=== PATIENT | female | born 1945 | race Caucasian/White ===

== ENCOUNTER 2019-11-06 05:45 | Inpatient (IN) | payer OTHER, BC ==
[2019-10-30 15:00] VITALS: BMI 19.3
[2019-11-06] MEDS ORDERED: TRANEXAMIC ACID 1000 MG/10 ML VIAL IVPUSH ONE (06:29)
[2019-11-06] MEDS ORDERED: CELECOXIB 200 MG CAPSULE PO ONE (06:29)
[2019-11-06] MEDS ORDERED: CEFAZOLIN 2 GM in DEXTROSE 5%-WATER - 50 ML IVPB ONE (06:29)
[2019-11-06] MEDS ORDERED: MIDAZOLAM HCL 2 MG/2 ML SINGLE DOSE VIAL ONE (06:47)
[2019-11-06] MEDS ORDERED: BUPIVACAINE LIPOSOME/PF (EXPAREL) 266 MG/20 ML VIAL ONE (06:47)
[2019-11-06] MEDS ORDERED: SODIUM CHLORIDE 0.9% P/F 10 ML VIAL IJ ONE (06:47)
[2019-11-06] MEDS ORDERED: VANCOMYCIN 1,000 MG VIAL (RESTRICTED TO ID ONLY) ONE (07:17)
[2019-11-06] MEDS ORDERED: ceFAZolin SODIUM 1 GM VIAL ONE ×2 (07:17→08:55)
--- NOTE | 2019-11-06 07:58 | HP ---
Satellite [facility] - Chief Complaint Chief Complaint: right knee pain - Past Medical History Allergies/Adverse Reactions: Allergies Allergy/AdvReac Type Severity Reaction Status Date / Time erythromycin base Allergy Verified 10/30/19 14:48 Penicillins Allergy Hives Verified 10/30/19 14:48 seasonal Allergy Uncoded 10/30/19 14:48 - Current Medications Current Medications: Home Medications Medication Instructions Recorded Biotin 5 mg PO DAILY 10/30/19 Calcium Carbonate [Calcium] 1,200 mg PO DAILY 10/30/19 Cholecalciferol (Vitamin D3) 800 unit PO DAILY 10/30/19 [Vitamin D3 -] Cyanocobalamin (Vitamin B-12) 2,500 mcg PO DAILY 10/30/19 [Vitamin B12] Iron 65 mg PO DAILY 10/30/19 Lisinopril 20 mg PO DAILY 10/30/19 [place]-3/Dha/Epa/Fish Oil [Fish Oil 1 each PO DAILY 10/30/19 1,000 mg Softgel] Zinc 50 mg PO DAILY 10/30/19 Satellite Physical Exam - Physical Examination Vital Signs: Vital Signs Period Temp Pulse Resp BP Sys/Tee Pulse Ox Last 24 Hr 98.2 F 56 18 147/86 General Appearance: Well Nourished, Well Developed, Alert & Oriented x3 ENT: Clear Lung: Normal air movement Extremities: Other (right knee- + swelling, + ttp, decr rom, nvi, xrays show grade 4 tricompartmental djd) Neurological: Intact, Alert, Oriented Satellite Impression/Plan - Impression/Plan Impression: right knee djd Operative Procedure: right neha tkr Date to be Performed: 11/06/19
[2019-11-06] MEDS ORDERED: MAGNESIUM HYDROX 2400MG/30ML ORAL SUSPENSION 30 ML CUP PO PRN (07:59)
[2019-11-06] MEDS ORDERED: MAG HYDROX/AL HYDROX/SIMETH 30 ML UNIT-DOSE CUP PO PRN (07:59)
[2019-11-06] MEDS ORDERED: LACTATED RINGERS SOLUTION 1,000 ML IV SCH (08:00)
[2019-11-06] MEDS ORDERED: CLINDAMYCIN PHOSPHATE 600 MG/4 ML VIAL ONE (08:24)
[2019-11-06] MEDS ORDERED: TRANEXAMIC ACID 1000 MG/10 ML VIAL ONE (08:24)
[2019-11-06] MEDS ORDERED: KETOROLAC TROMETHAMINE 30 MG/1 ML VIAL ONE (08:24)
[2019-11-06] MEDS ORDERED: PROPOFOL 20 ML ONE (08:25)
[2019-11-06] MEDS ORDERED: DEXAMETHASONE SOD PHOSPHATE 4 MG/1 ML VIAL ONE (08:54)
[2019-11-06] MEDS ORDERED: ONDANSETRON 4 MG/2 ML VIAL ONE (08:54)
[2019-11-06] MEDS ORDERED: HYDROmorphone HCL CARPU-JECT 1 MG/1 ML DISP.SYRIN IVPUSH PRN (09:22)
[2019-11-06] MEDS ORDERED: ONDANSETRON 4 MG/2 ML VIAL IVPUSH PRN (09:22)
[2019-11-06] MEDS ORDERED: ACETAMINOPHEN 1000 MG/100 ML VIAL (NON FORMULARY) IVPB ONE (09:24)
[2019-11-06] MEDS ORDERED: oxyCODONE HCL 5 MG TABLET PO PRN (09:24)
[2019-11-06] MEDS ORDERED: VANCOMYCIN 1,000 MG VIAL (RESTRICTED TO ID ONLY) IVPB ONE (09:35)
--- NOTE | 2019-11-06 09:53 | OP ---
Operative Note - Note: Operative Date: 11/06/19 (corky) Pre-Operative Diagnosis: right knee djd Operation: right enha tkr Post-Operative Diagnosis: Same as Pre-op Surgeon: Reji Trujillo Directory Clerk: Dustin Gramajo Anesthesiologist/MOLD YARD WORKER: Adia Valdez Anesthesia: Spinal, Local Specimens Removed: bone fragments Estimated Blood Loss (mls): 100
[2019-11-06] MEDS ORDERED: IRON 65 MG PO SCH (10:00)
[2019-11-06] MEDS: oxyCODONE HCL 10 MG SUSTAINED ACTING TABLET PO SCH ×2 (10:26→21:22)
[2019-11-06] MEDS ORDERED: ACETAMINOPHEN INJECTION 100 ML IVPB ONE (10:43)
[2019-11-06] MEDS: LACTATED RINGERS SOLUTION 1,000 ML IV SCH (12:00)
[2019-11-06] MEDS: SENNOSIDES/DOCUSATE COMBO (SENNA PLUS) TABLET (UD) PO SCH ×2 (13:25→21:23)
[2019-11-06] MEDS: LISINOPRIL 20 MG TABLET (FP) PO SCH (13:25)
[2019-11-06] MEDS: FERROUS SO4 325 MG TABLET (FP) PO SCH (13:27)
[2019-11-06] MEDS: PANTOPRAZOLE 40 MG TABLET PO SCH (13:27)
[2019-11-06] MEDS: MULTIVITAMINS (DAILY MVI) TABLET (FP) PO SCH (13:27)
[2019-11-06] MEDS: CEFAZOLIN 2 GM/D5W 2 GM/50 ML ML IVPB SCH (16:00)
[2019-11-06] MEDS: oxyCODONE HCL 5 MG TABLET PO PRN (23:16)
[2019-11-07] MEDS: CEFAZOLIN 2 GM/D5W 2 GM/50 ML ML IVPB SCH (00:12)
[2019-11-07] MEDS: ONDANSETRON 4 MG/2 ML VIAL IVPUSH PRN ×2 (01:27→06:08)
[2019-11-07 08:34] LABS: HEMATOCRIT 32.1 % (32.4-45.2); HEMOGLOBIN 10.9 GM/dl (10.7-15.3); MCH 30.4 pg (25.7-33.7); MEAN CELL VOLUME 89.4 fl (80-96); MEAN PLT VOLUME 8.5 fl (7.5-11.1); PLATELET COUNT 168 K/MM3 (134-434); RBC 3.59 M/mm3 (3.60-5.2); RDW 12.9 % (11.6-15.6); WHITE BLOOD COUNT 7.7 K/mm3 (4.0-10.8)
[2019-11-07] MEDS: ASPIRIN 325 MG TABLET PO SCH (09:04)
[2019-11-07] MEDS: SENNOSIDES/DOCUSATE COMBO (SENNA PLUS) TABLET (UD) PO SCH ×2 (09:04→21:09)
[2019-11-07] MEDS: PANTOPRAZOLE 40 MG TABLET PO SCH (09:05)
[2019-11-07] MEDS: MULTIVITAMINS (DAILY MVI) TABLET (FP) PO SCH (09:05)
[2019-11-07] MEDS: FERROUS SO4 325 MG TABLET (FP) PO SCH (09:05)
--- NOTE | 2019-11-07 11:52 | SPEC ---
DATE OF OPERATION: 11/06/2019 PREOPERATIVE DIAGNOSIS: Degenerative joint disease, right knee. POSTOPERATIVE DIAGNOSIS: Degenerative joint disease, right knee. PROCEDURE: Right total knee replacement with robotic-assisted navigation (Makoplasty). SURGICAL ATTENDING: Reji Trujillo M.D. NURSE PRN: Leland Enriquez ANESTHESIA: Regional and spinal. CLOSURE: A cemented Triathlon knee system with a 3 femur, 4 tibia, 11 polyethylene, 32 patella, number 1 Vicryl fascia, 0 and 2-0 subcutaneous, 3-0 Monocryl subcuticular with skin glue for skin, 4-0 undyed Vicryl for pin site. ESTIMATED BLOOD LOSS: Negligible. COMPLICATIONS: None. CONDITION: To recovery room in stable condition. DESCRIPTION OF OPERATIVE PROCEDURE: Patient was taken to the operating room on November 06, 2019. Regional and general anesthesia was administered by the anesthesiologist. IV Kefzol and TXA were administered by the anesthesiologist. Well-padded pneumatic tourniquet was placed on the proximal thigh. The right lower extremity was prepped and draped in the usual sterile fashion. The leg was exsanguinated with an Esmarch bandage, and tourniquet was inflated to 275 mmHg. A 12 to 15-cm longitudinal midline incision was incised while centered over the patella. The dissection was carried down to the level of the extensor mechanism with sufficient flaps made to adequately perform the procedure. A medial parapatellar arthrotomy was then performed. We made a cuff of tissue on the patella for later closure. The patella was inverted, the knee was flexed up. The fat pad was excised. The subperiosteal dissection was on the anteromedial proximal tibia around towards the direction of the MCL. The ACL and the PCL were transected and debrided. The meniscal remnants of the medial and lateral meniscus were debrided and removed. This allowed the knee to be able to "be brought forward." The checkpoints were malleted into the tibia and into the femur. Two threaded pins were drilled anteroposteriorly proximal to the knee through the previous incision, through the anterior cortex, then just engaging the posterior cortex. To these pins was assembled the femoral navigation array. One handbreadth below the tibial tubercle, 2 stab incisions were used to drill 2 threaded pins in parallel fashion into the tibia, again through the anterior cortex and just engaging the posterior cortex. To these pins was fastened the tibial arrays. The knee was then registered with the navigation device with center of rotation of the hip, medial and lateral malleoli, both checkpoints, and multiple points on both the femur and the tibia to ensure excellent registration. The navigation device was directed off the "top of the bubbles" on both the femur and the tibia. The navigation passed within less than 0.5 mm to plan. The knee was then thoroughly inspected to remove all osteophytes both medially, laterally, and on the femur and the tibia, and whatever osteophytes were available for dissection. The knee was then taken to extension and to flexion, and stressed in both varus and valgus to assess flexion gaps. The virtual position of the components on the navigation device were then manipulated to optimize the position and to ensure equal gaps in both flexion and extension, and both medially and laterally. The robot was then brought into the field and was registered. The cuts were then made both on the femur and on the tibia as to plan. All osteophytes posteriorly were then removed as well. The gaps were then measured again in flexion and extension to be equal in both flexion and extension and medial and laterally. The femoral notch was then made, as we were doing a posterior stabilizing component, with the appropriate sized box. Trial reduction of the femur achieved excellent [id number] fit. A tibial baseplate of appropriate polyethylene thickness was "floated in the knee." It was ensured to be in the excellent position by navigation devices and was pinned in place. The knee was taken through a range of motion, and found to have excellent stability throughout flexion and extension. The patella was calibrated for thickness and osteotomized down to the appropriate level. The appropriate lollipop was used to drill the lug holes in the patella and the trial button was applied. The knee was taken through a range of motion and found to have excellent tracking of the patella, and patella from full extension to full flexion. Trial components were removed, the keel was punched and drilled, and a sclerotic bone on the tibia was drilled to help with cement interdigitation. The knee was thoroughly irrigated with the pulse antibiotic banbury mill operator. The real components were then cemented in using monitored arrangement cement techniques with antibiotic cement, and pressurization and extension. After the cement was hardened, the knee was thoroughly inspected to remove any extra cement. The real polyethylene component was then clipped into place. Range of motion, stability, and tracking were as described earlier. The checkpoints and the pins were removed. The knee was thoroughly irrigated with antibiotic irrigation. Vancomycin powder was placed into the knee for antibiotic prophylaxis. The medial parapatellar arthrotomy was then closed using number 1 Vicryl interrupted suture. After closure of the deep layer, the knee was taken through a range of motion, and found to have excellent stability of the patella with no dislocation and no undue tension on the repair. The subcutaneous was pulse antibiotic irrigated, and was then closed with 2-0 Vicryl, 3-0 Monocryl subcuticular with the skin glue for the skin. The distal tibial pin site was irrigated thoroughly as well and then closed with 4-0 undyed Vicryl. A sterile Aquacel dressing was applied, followed by a [place] dressing. Tourniquet was deflated. Total tourniquet time was approximately 20 minutes. No complications. Patient was awakened from anesthesia and transferred to recovery room in stable condition. Postoperative x-rays revealed excellent position of the components. Manpreet [id number]
[2019-11-07] MEDS: LISINOPRIL 20 MG TABLET (FP) PO SCH (12:05)
[2019-11-07] MEDS: LACTATED RINGERS SOLUTION 1,000 ML IV SCH (12:05)
[2019-11-07] MEDS: oxyCODONE HCL 5 MG TABLET PO PRN ×2 (16:15→21:09)
--- NOTE | 2019-11-07 22:45 | PN ---
Progress Note (short form) - Note Progress Note: AVSS comfortable Bandages dry and intact calf soft and NT NVI Imp: doing well Plan: PT and Dc in AM
[2019-11-08 02:05] VITALS: PULSE 50
[2019-11-08 06:38] VITALS: BP 130/47; TEMP 98.6
[2019-11-08] MEDS: oxyCODONE HCL 5 MG TABLET PO PRN (08:18)
[2019-11-08] MEDS: ASPIRIN 325 MG TABLET PO SCH (08:20)
[2019-11-08 09:17] LABS: HEMATOCRIT 31.6 % (32.4-45.2); HEMOGLOBIN 10.9 GM/dl (10.7-15.3); MCHC 34.6 g/dl (32.0-36.0); MEAN CELL VOLUME 89.5 fl (80-96); PLATELET COUNT 145 K/MM3 (134-434); RBC 3.54 M/mm3 (3.60-5.2); RDW 13.1 % (11.6-15.6); WHITE BLOOD COUNT 7.4 K/mm3 (4.0-10.8)
[2019-11-08] MEDS: FERROUS SO4 325 MG TABLET (FP) PO SCH (09:20)
[2019-11-08] MEDS: PANTOPRAZOLE 40 MG TABLET PO SCH (09:20)
[2019-11-08] MEDS: SENNOSIDES/DOCUSATE COMBO (SENNA PLUS) TABLET (UD) PO SCH (09:20)
[2019-11-08] MEDS: MULTIVITAMINS (DAILY MVI) TABLET (FP) PO SCH (09:20)
[2019-11-08] MEDS: LISINOPRIL 20 MG TABLET (FP) PO SCH (09:21)
[2019-11-08] MEDS ORDERED: PT OWN MED DRAWER 7, Y5N ONE (09:31)
--- NOTE | 2019-11-11 12:57 | PATH ---
Surgical Pathology Report Patient Name: KENNETH MAHARAJ Med. Rec. #: [id number] /Age/Gender: 1945 (Age: 74) / F Account: [id number] Location: [facility] Taken: 11/06/2019 Received: 11/06/2019 Reported: 11/11/2019 Physicians: Reji Trujillo M.D. Specimen(s) Received RIGHT KNEE BONES Clinical History Right knee osteoarthritis Final Diagnosis KNEE BONES, RIGHT, TOTAL KNEE REPLACEMENT: DEGENERATIVE JOINT DISEASE. Electronically Signed Poonam Morgan M.D. Gross Description Received in formalin labeled "right knee bones," is a 9.0 x 7.5 x 1.8 cm aggregate of multiple portions of bone and soft tissue, consistent with knee bones. The tibial plateau measures 7.3 x 5.3 x 1.8 cm. There is a 1.7 cm in greatest dimension area of eburnation present. The remaining articular surfaces are matamoros-brown and diffusely granular. The underlying trabecular bone is yellow and hard. Tie Sawyer sections are submitted in one cassette, following decalcification. 11/09/2019 [facility]11/09/2019
== END 2019-11-08 10:05 | disposition home health service (06) | DRG 470 ==
LOC: FM/S 05:45
PROVIDERS: ADMIT Orthopaedic Surgery; ATTEND Orthopaedic Surgery
PROC: 8E0Y0CZ Robotic Assisted Procedure of Lower Extremity, Open Approach (ICD-10-PCS; 2019-11-06)
PROC: 0SRC0J9 Replacement of Right Knee Joint with Synthetic Substitute, Cemented, Open Approach (ICD-10-PCS; principal; 2019-11-06 08:29)
DX: M17.11 Unilateral primary osteoarthritis, right knee (principal); I10 Essential (primary) hypertension; G47.30 Sleep apnea, unspecified
CPT/HCPCS: 36415; 73560-TC-RT-FY; 85027; 88304-TC; 88311-TC; 94660; 94760; 97010-GP; 97116-GP; 97162-GP; J0131; U0003